=== PATIENT | female | born 1995 | race Asian ===

== ENCOUNTER 2018-03-07 10:12 | Emergency (ER) | payer BC ==
[~2018-03-07] VITALS: Ht 170.2 cm; Wt 49.9 kg
[2018-03-07 10:37] VITALS: BP 115/78
[2018-03-07] MEDS ORDERED: Isovue-300 100ml vial INJ PRN (10:45)
[2018-03-07 11:13] LABS: APPEARANCE,URINE CLEAR; BILIRUBIN, URINE NEGATIVE (NEGATIVE); GLUCOSE, URINE (UA) NEGATIVE (NEGATIVE); KETONES,URINE NEGATIVE (NEGATIVE); LEUKOCYTE ESTERASE ,URINE 1+ (NEGATIVE); NITRITE,URINE NEGATIVE (NEGATIVE); PH,URINE 8 (4.5-8.0); PROTEIN,URINE NEGATIVE (NEGATIVE); UROBILINOGEN,URINE NORMAL MG/DL (0.0-1.0)
[2018-03-07 11:18] LABS: HEMATOCRIT 43.1 % (37.0-47.0); HEMOGLOBIN 14.3 G/DL (12.0-16.0); MEAN CORPUSCULAR VOLUME 84 FL (80-99); PLATELET COUNT 282 K/UL (150-450); RED BLOOD COUNT 5.11 M/UL (4.20-5.40); RED CELL DISTRIBUTION WIDTH 11.1 % (11.6-14.8); WHITE BLOOD COUNT 10.4 K/UL (4.8-10.8)
[2018-03-07 11:22] LABS: COLOR,URINE YELLOW
[2018-03-07 11:26] LABS: ANION GAP 9 mmol/L (5-15); BLOOD UREA NITROGEN 15 mg/dL (7-18); CALCIUM 9.3 MG/DL (8.5-10.1); CARBON DIOXIDE 28 MMOL/L (21-32); CHLORIDE 104 MMOL/L (98-107); CREATININE 0.6 MG/DL (0.55-1.30); POTASSIUM 3.9 MMOL/L (3.5-5.1); SODIUM 141 MMOL/L (136-145)
[2018-03-07 11:30] LABS: ALANINE AMINOTRANSFERASE 33 U/L (12-78); ALBUMIN 4.1 G/DL (3.4-5.0); ALKALINE PHOSPHATASE 69 U/L (46-116); ASPARTATE AMINO TRANSFERASE 41 U/L (15-37); BILIRUBIN,TOTAL 0.3 MG/DL (0.2-1.0)
--- NOTE | 2018-03-07 13:18 | Diagnostic Imaging Report ---
Clinical Indication: Left upper quadrant and left flank pain times one day Technique: No oral contrast utilized, per emergency room physician request IV administration nonionic contrast. Venous phase spiral acquisition obtained through the abdomen and pelvis. Multiplanar reconstructions were generated. Total dose length product 543.45 mGycm. CTDIvol(s) 10.01 mGy. Dose reduction achieved using automated exposure control Comparison: none Findings: Lack of oral contrast limits assessment of the GI tract. The appendix is normal. No evidence of diverticulosis or diverticulitis. A single prominent small bowel loop is seen in the left upper quadrant, but no small bowel distention otherwise. The distal esophagus, stomach, duodenum are unremarkable. No free or loculated intraperitoneal gas or fluid. Free fluid seen on earlier pelvic ultrasound is less apparent on this exam. The liver demonstrates slightly prominent periportal fat, is otherwise unremarkable. The gallbladder is contracted. No biliary ductal dilatation. The spleen demonstrates a granulomatous calcification The pancreas, adrenals, kidneys are all unremarkable. No retroperitoneal or mesenteric mass or adenopathy. No pelvic mass or adenopathy. Uterus and ovaries are unremarkable. A calcified granuloma is seen at the left lung base. The lung bases are otherwise clear. The bones are unremarkable. Impression: Limited assessment of the GI tract, due to lack of enteric contrast administration. No definite acute abnormality demonstrated. 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
--- NOTE | 2018-03-07 13:36 | Emergency Room Report ---
History of Present Illness General Chief Complaint: Abdominal Pain Source: Patient Present Illness HPI This patient complains of pain in her left upper abdomen. She states that the pain waxes and wanes in severity. She did get was in tooth extraction 3 days ago and has been on hydrocodone. She denies constipation but admits that she has had decreased frequency of bowel movements. She denies dysuria or hematuria. She denies nausea or vomiting. She is fever or chills. She states that she had her menses last week. She denies abnormal vaginal discharge. She has no other complaints. Allergies: Coded Allergies: No Known Allergies (Unverified , 03/07/18) Patient History Past Medical History: none Social History: Denies: smoking, alcohol use, drug use Last Menstrual Period: 2 weeks Now: No Reviewed Nursing Documentation: PMH: Agreed; PSxH: Agreed Nursing Documentation-PMH Past Medical History: No Stated History Review of Systems All Other Systems: negative except mentioned in HPI Physical Exam Vital Signs Date Time Temp Pulse Resp B/P (MAP) Pulse Ox O2 Delivery O2 Flow Rate FiO2 03/07/18 10:27 98.0 72 18 115/78 100 Room Air 98.1 Sp02 EP Interpretation: reviewed, normal General Appearance: no apparent distress, alert, GCS 15, non-toxic Head: normocephalic, atraumatic Eyes: bilateral eye normal inspection, bilateral eye PERRL ENT: hearing grossly normal, normal pharynx, no angioedema, normal voice Neck: full range of motion, supple/symm/no masses Respiratory: chest non-tender, lungs clear, normal breath sounds, no respiratory distress, no retraction, no accessory muscle use, speaking full sentences Cardiovascular #1: regular rate, rhythm, no edema Gastrointestinal: normal bowel sounds, soft, non-distended, no guarding, no rebound, tenderness - TTP in the LUQ Rectal: deferred Musculoskeletal: back normal, gait/station normal, normal range of motion, non- tender Neurologic: alert, oriented x3, responsive, motor strength/tone normal, sensory intact, speech normal Psychiatric: judgement/insight normal, memory normal, mood/affect normal, no suicidal/homicidal ideation Skin: normal color, no rash, warm/dry, well hydrated Medical Decision Making Diagnostic Impression: Primary Impression: Abdominal pain ER Course This patient complains of abdominal pain. The patient's evaluation is negative. There is no evidence of pancreatitis. The symptoms and physical exam are not consistent with cholelithiasis or cholecystitis. The patient does not have a urinary tract infection. CT of the abdomen and pelvis and pelvic ultrasound are also unremarkable. Overall, this patient's evaluation is benign. I suspect she is having intestinal cramping related to hydrocodone use. The patient was educated that she needed to come off of narcotics as soon as she is able to. She is given return precautions and follow-up instructions. Laboratory Tests Test 03/07/18 11:00 White Blood Count 10.4 K/UL (4.8-10.8) Red Blood Count 5.11 M/UL (4.20-5.40) Hemoglobin 14.3 G/DL (12.0-16.0) Hematocrit 43.1 % (37.0-47.0) Mean Corpuscular Volume 84 FL (80-99) Mean Corpuscular Hemoglobin 28.1 PG (27.0-31.0) Mean Corpuscular Hemoglobin Concent 33.3 G/DL (32.0-36.0) Red Cell Distribution Width 11.1 % (11.6-14.8) L Platelet Count 282 K/UL (150-450) Mean Platelet Volume 5.6 FL (6.5-10.1) L Neutrophils (%) (Auto) % (45.0-75.0) Lymphocytes (%) (Auto) % (20.0-45.0) Monocytes (%) (Auto) % (1.0-10.0) Eosinophils (%) (Auto) % (0.0-3.0) Basophils (%) (Auto) % (0.0-2.0) Differential Total Cells Counted 100 Neutrophils % (Manual) 89 % (45-75) H Lymphocytes % (Manual) 4 % (20-45) L Monocytes % (Manual) 7 % (1-10) Eosinophils % (Manual) 0 % (0-3) Basophils % (Manual) 0 % (0-2) Band Neutrophils 0 % (0-8) Platelet Estimate Adequate Platelet Morphology Normal Red Blood Cell Morphology Normal Urine Color Yellow Urine Appearance Clear Urine pH 8 (4.5-8.0) Urine Specific [place] 1.015 (1.005-1.035) Urine Protein Negative (NEGATIVE) Urine Glucose (UA) Negative (NEGATIVE) Urine Ketones Negative (NEGATIVE) Urine Blood Negative (NEGATIVE) Urine Nitrite Negative (NEGATIVE) Urine Bilirubin Negative (NEGATIVE) Urine Urobilinogen Normal MG/DL (0.0-1.0) Urine Leukocyte Esterase 1+ (NEGATIVE) H Urine RBC 0-2 /HPF (0 - 2) Urine WBC 0-2 /HPF (0 - 2) Urine Squamous Epithelial Cells Few /LPF (NONE/OCC) Urine Amorphous Sediment Occasional /LPF (NONE) Urine Bacteria Occasional /HPF (NONE) Urine HCG, Qualitative Negative (NEGATIVE) Sodium Level 141 MMOL/L (136-145) Potassium Level 3.9 MMOL/L (3.5-5.1) Chloride Level 104 MMOL/L (98-107) Carbon Dioxide Level 28 MMOL/L (21-32) Anion Gap 9 mmol/L (5-15) Blood Urea Nitrogen 15 mg/dL (7-18) Creatinine 0.6 MG/DL (0.55-1.30) Estimate Glomerular Filtration Rate > 60 mL/min (>60) Glucose Level 121 MG/DL (74-106) H Calcium Level 9.3 MG/DL (8.5-10.1) Total Bilirubin 0.3 MG/DL (0.2-1.0) Aspartate Amino Transferase (AST) 41 U/L (15-37) H Alanine Aminotransferase (ALT) 33 U/L (12-78) Alkaline Phosphatase 69 U/L (46-116) Total Protein 8.1 G/DL (6.4-8.2) Albumin 4.1 G/DL (3.4-5.0) Globulin 4.0 g/dL Albumin/Globulin Ratio 1.0 (1.0-2.7) Lipase 98 U/L (73-393) CT/MRI/US Diagnostic Results CT/MRI/US Diagnostic Results : Imaging Test Ordered: CT abd/pelvis, US pelvis Impression No acute findings. See official report. A small amount of fully fluid in the cul-de-sac. No acute findings. See official report. Last Vital Signs Date Time Temp Pulse Resp B/P (MAP) Pulse Ox O2 Delivery O2 Flow Rate FiO2 03/07/18 10:37 98.1 18 115/78 100 Room Air 98.1 03/07/18 10:27 72 Status: improved Disposition: HOME, SELF-CARE Condition: Improved Referrals: NOT CHOSEN IPA/MD,REFERRING (PCP) Patient Instructions: Abdominal Pain, Adult Mora Jimenez DO Mar 07, 2018 13:36
[2018-03-07] MEDS ORDERED: IBUPROFEN800 MG ORAL (13:37)
[2018-03-07 13:45] VITALS: BP 117/80
--- NOTE | 2018-03-07 14:40 | Diagnostic Imaging Report ---
Indication: Abdominal pain, negative test, left flank pain. Doppler interrogation of the bilateral ovaries Technique: Transabdominal and transvaginal images Comparison: none Findings: Uterus measures 5.6 cm length by 2.7 cm AP. Endometrium measures 2 mm thick. No myometrial abnormality. Trace free fluid is seen in the pelvic cul-de-sac. The right ovary measures 2.6 cm length. Left ovary measures 2.8 cm in length. No adnexal mass. Normal color Doppler flow demonstrated Impression: Essentially unremarkable exam Trace free cul-de-sac fluid, presumably physiologic
== END 2018-03-07 13:45 | disposition home or self-care (01) ==
LOC: EMR 10:50
DX: R10.12 Left upper quadrant pain (principal)
CPT/HCPCS: 36415; 74177; 76830; 76856; 80053; 81003; 81025; 83690; 85007; 85025; 96360; 99284; Q9967